=== PATIENT | female | born 1995 | race Caucasian/White ===

== ENCOUNTER 2017-02-05 20:32 | Emergency (ER) | payer OTHER ==
[2017-02-05 20:38] VITALS: BP 104/77; PULSE 78; RESP 16; TEMP 97.7; O2SAT 96
--- NOTE | 2017-02-05 21:14 | EDPHY ---
H & P Stated Complaint: l 4th toe injury vs bedframe Time Seen by Provider: 02/05/17 21:13 HPI/ROS: CHIEF COMPLAINT: Left 4th toe injury HISTORY OF PRESENT ILLNESS: 21-year-old female arrives via private vehicle complaining of stubbing injury to left 4th toe this evening. Accidental. Intact skin. No bleeding. PRIMARY CARE PROVIDER: REVIEW OF SYSTEMS: A ten point review of systems was performed and is negative with the exception of the items mentioned in the HPI PHYSICAL EXAM (Prior to examination, patient consented to physical exam, hands were washed and my usual and customary physical exam procedures followed) 1) GENERAL: Well-developed, well-nourished, alert and oriented. Appears to be in no acute distress. 2) HEAD: Normocephalic 3) HEENT: sclera anicteric 4) LUNGS: Breathing comfortably. 5) SKIN: intact no rash no abrasion. No puncture wound or laceration 6) MUSCULOSKELETAL: tender to palpation left 4th digit with no malrotation or shortening 7) NEUROLOGIC: Full sensation. DIFFERENTIAL DIAGNOSIS: fracture sprain dislocation - Personal History LMP (Females 10-55): Unknown Current Tetanus/Diphtheria Vaccine: Yes - Medical/Surgical History Hx Asthma: No Hx Chronic Respiratory Disease: No Hx Diabetes: No Hx Cardiac Disease: No Hx Renal Disease: No Hx Cirrhosis: No Hx Alcoholism: No Hx HIV/AIDS: No Hx Splenectomy or Spleen Trauma: No Other PMH: Denies - Social History Smoking Status: Never smoked Constitutional: Initial Vital Signs Temperature (C) 36.5 C 02/05/17 20:36 Heart Rate 78 02/05/17 20:36 Respiratory Rate 16 02/05/17 20:36 Blood Pressure 104/77 02/05/17 20:36 O2 Sat (%) 96 02/05/17 20:36 O2 Delivery Mode Room Air Allergies/Adverse Reactions: No Known Allergies Allergy (Unverified 02/05/17 21:03) Home Medications: Medication Instructions Recorded Ibuprofen [Motrin (*)] 600 mg PO Q6 #15 tab 02/05/17 Medical Decision Making - Diagnostics Imaging: I viewed and interpreted images myself Procedures: Procedure: Splint A tanisha-tape and postoperative shoe splint was applied by ER database software technician. After application of the splint I returned and re-examined the patient. The splint was adequately immobilizing the joint and distal to the splint the patient's circulation and sensation were intact. Patient shows no signs of compartment syndrome. Was given orthopedic precautions. Departure - Departure Disposition: Home, Routine, Self-Care Clinical Impression: Fracture of fourth toe, left, closed Condition: Good Instructions: Toe Fracture (ED) Additional Instructions: Return to the ER immediately if you experience discoloration, have worsening pain, numbness, tingling, or any other symptoms that concern you. If you received x-rays in the emergency department today, be advised, that ligamentous , tendon, muscular, and other non-bony injury cannot be fully ruled out. Try to keep your affected extremity elevated above the level of your chest, and keep cold packs on the affected area, for the next 48 hours. Referrals: Franki Almonte DPM [Doctor of Podiatric Medicine] - 5-7 days, call for appt. Prescriptions: Ibuprofen [Motrin (*)] 600 mg PO Q6 #15 tab
== END 2017-02-05 22:24 | disposition home or self-care (01) ==
DX: S92.515A Nondisplaced fracture of proximal phalanx of left lesser toe(s), initial encounter for closed fracture (principal); W22.8XXA Striking against or struck by other objects, initial encounter; Y92.89 Other specified places as the place of occurrence of the external cause; Y99.8 Other external cause status; Y93.89 Activity, other specified
CPT/HCPCS: L3260